=== PATIENT | female | born 1975 | race Asian ===

== ENCOUNTER 2019-03-10 10:42 | Inpatient (IN) | payer OTHER ==
[~2019-03-10] VITALS: Ht 167.6 cm; Wt 63.5 kg
[2019-03-10] VITALS (20 sets, daily range): BP systolic 19–128; BP diastolic 41–70; TEMP 98.6–99; Ht 167.6 cm; Wt 63.5 kg
[2019-03-10 11:21] LABS: PLATELET COUNT 367 K/uL (152-353)
[2019-03-10 11:34] LABS: POTASSIUM 3.6 mmol/L (3.6-5.2)
[2019-03-10 13:01] LABS: PARTIAL THROMBOPLASTIN TIME 22.2 SECONDS (24.5-33.6)
[2019-03-11] VITALS (8 sets, daily range): BP systolic 105–138; BP diastolic 46–68; TEMP 98.7–99
[2019-03-11 05:33] LABS: PLATELET COUNT 302 K/uL (152-353)
[2019-03-11 06:16] LABS: POTASSIUM 3.9 mmol/L (3.6-5.2)
== END 2019-03-11 10:46 | disposition home or self-care (01) | DRG 812 ==
LOC: ED 10:42 → ICU 12:45
PROVIDERS: Family Medicine; ADMIT Hospitalist
PROC: 30233N1 Transfusion of Nonautologous Red Blood Cells into Peripheral Vein, Percutaneous Approach (ICD-10-PCS; principal; 2019-03-10)
PROC: 30233N1 Transfusion of Nonautologous Red Blood Cells into Peripheral Vein, Percutaneous Approach (ICD-10-PCS; 2019-03-11)
DX: D62 Acute posthemorrhagic anemia (principal); N92.0 Excessive and frequent menstruation with regular cycle; N93.8 Other specified abnormal uterine and vaginal bleeding
CPT/HCPCS: 36415; 80053; 81025; 82272; 85027; 85610; 85730; 86850; 86900; 86901; 86922; 93005; 99285; P9016

== ENCOUNTER 2019-05-04 15:25 | Outpatient (CLI) | payer OTHER | END 2019-05-04 19:55 | disposition home or self-care (01) | LOC: MAMMO 15:25 | DX: Z12.31 Encounter for screening mammogram for malignant neoplasm of breast (principal) ==

== ENCOUNTER 2019-06-17 10:08 | Outpatient (CLI) | payer OTHER ==
[2019-06-17 10:29] LABS: PLATELET COUNT 305 K/uL (152-353)
[2019-06-17 10:32] LABS: POTASSIUM 3.6 mmol/L (3.6-5.2)
== END 2019-06-17 22:22 | disposition home or self-care (01) ==
LOC: LABW 10:08
PROVIDERS: Obstetrics & Gynecology
DX: Z01.818 Encounter for other preprocedural examination (principal); N93.9 Abnormal uterine and vaginal bleeding, unspecified
CPT/HCPCS: 36415; 80048; 85027

== ENCOUNTER 2020-07-26 09:58 | Outpatient (CLI) | payer OTHER | END 2020-07-26 20:20 | disposition home or self-care (01) | LOC: MAMMO 09:58 | DX: Z12.31 Encounter for screening mammogram for malignant neoplasm of breast (principal) ==

== ENCOUNTER 2021-08-26 11:02 | Outpatient (CLI) | payer OTHER | END 2021-08-26 19:20 | disposition home or self-care (01) | LOC: MAMMO 11:02 | PROVIDERS: ATTEND Obstetrics & Gynecology | DX: Z12.31 Encounter for screening mammogram for malignant neoplasm of breast (principal) ==

== ENCOUNTER 2022-09-05 12:54 | Outpatient (CLI) | payer OTHER | END 2022-09-05 18:58 | disposition home or self-care (01) | LOC: MAMMO 12:54 | PROVIDERS: ATTEND Obstetrics & Gynecology | DX: Z12.31 Encounter for screening mammogram for malignant neoplasm of breast (principal) ==

== ENCOUNTER 2022-10-16 09:00 | Outpatient (CLI) | payer OTHER | END 2022-10-16 19:38 | disposition home or self-care (01) | LOC: MAMMO 09:00 | PROVIDERS: ATTEND Obstetrics & Gynecology | DX: R92.2 Inconclusive mammogram (principal) ==

== ENCOUNTER 2023-03-26 10:02 | Outpatient (CLI) | payer OTHER | END 2023-03-26 22:20 | disposition home or self-care (01) | LOC: MAMMO 10:02 | PROVIDERS: ATTEND Obstetrics & Gynecology | DX: R92.2 Inconclusive mammogram (principal) | CPT/HCPCS: G0279 ==